=== PATIENT | female | born 1955 | race Caucasian/White ===

== ENCOUNTER 2023-04-29 09:14 | Day surgery (SDC) | payer MEDICARE, BC ==
[~2023-04-29] VITALS: Ht 157.5 cm; Wt 119.5 kg
[2023-04-29 07:30] VITALS: BP 139/78; PULSE 64; RESP 29
[2023-04-29 08:50] VITALS: BP 110/71; PULSE 55; RESP 20; O2SAT 95
[2023-04-29 09:00] VITALS: BP 108/73; PULSE 54; RESP 19; O2SAT 96
[2023-04-29 09:10] VITALS: BP 113/68; PULSE 53; RESP 15; O2SAT 98
[~2023-04-29 09:14] MED LIST: ALLO100T25 PO; BUDE0.5A11 IH; CARV3.12 PO; DESL5TAB PO; ESTR1TAB19 PO; FLUT1DIS20 INH; FURO80TA87 PO; LIDOcaine 2% Viscous 15ml cup TP ONE; MIDAZolam 1 MG/ML 5ML VIAL IV PRN; OMEP20TA43 PO; TIOT18CA3 INH; fentaNYL/PF 50MCG/1 ML 2ML syringe IV PRN; normal saline 1000ml 1,000 ML IV ONE; simethicone 40mg/0.6ml oral drops 30ml PO ONE
[2023-04-29 09:19] VITALS: BP 115/74; PULSE 56; RESP 19; O2SAT 94
== END 2023-04-29 09:25 | disposition home or self-care (01) ==
LOC: GI LAB 09:14
PROVIDERS: ATTEND Internal Medicine Gastroenterology
DX: R13.10 Dysphagia, unspecified (principal); R12 Heartburn; K44.9 Diaphragmatic hernia without obstruction or gangrene; K29.50 Unspecified chronic gastritis without bleeding; I12.9 Hypertensive chronic kidney disease with stage 1 through stage 4 chronic kidney disease, or unspecified chronic kidney disease; N18.4 Chronic kidney disease, stage 4 (severe); I25.10 Atherosclerotic heart disease of native coronary artery without angina pectoris; J44.9 Chronic obstructive pulmonary disease, unspecified
CPT/HCPCS: 43239; J2250; J3010; J7030; Z7512; 88305; 99152; A4620